=== PATIENT | male | born 1945 | race Caucasian/White ===

== ENCOUNTER → 2017-10-08 06:09 | Outpatient (CLI) | payer OTHER, SELFPAY ==
--- NOTE | 2017-10-08 06:13 | DI.MRI.S_ITS ---
PROCEDURE: MR LUMBAR SPINE WO CON INDICATIONS: Status post L5-S1 fusion with left lower extremity radicular TECHNIQUE: Noncontrast sagittal T1 spin echo and T2 fast echo, sagittal STIR, axial T1 and T2 fast spin echo through the lumbar spine. In cases with scoliosis, additional coronal T2 fast spin echo may be performed. COMPARISON: Outside Film, MR, MR THORACIC SPINE WITHOUT CONTRAST, 03/15/2017, 16:12. MR, LUMBAR SPINE W/O CONTRAST, 03/28/2002, 12:31. [facility], CR, SPINE LUMB MIN 4VW, 05/04/2016, 8:52. [facility] , MR, LUMBAR SPINE W/CONTRAST, 12/06/2007, 14:01. [facility] , MR, LUMBAR SPINE W/O CONTRAST, 12/05/2007, 7:09. [facility], CR, XR LUMBAR SPINE LAT FL EX 3VW, 08/25/2016, 9:29. [facility], MR, MR LUMBAR SPINE WO CON, 05/17/2016, 10:00. FINDINGS: Image quality: Excellent. Alignment and Curvature: There is transitional anatomy with prominent S1-S2 disc. The nomenclatures used in several prior lumbar spine MRI reports were inconsistent in regard to numbering the lumbar spine vertebral levels. Assuming 7 cervical vertebrae and 12 thoracic vertebrae, the level with surgical change is L5-S1. This level was previously referred as L4-L5 on the last MRI. There is minimal retrolisthesis of L2 on L3 and L3 on L4. Bone Marrow: There is discectomy and posterior fusion at L5-S1 Marrow is of normal overall signal. No acute vertebral body compression fractures. Spinal Cord: Conus medullaris terminates at the T12-L1 level. Visualized cord demonstrates normal signal and size. Paraspinous Soft Tissues: No paravertebral masses. L1-L2: [id number] loss of disc height and disc desiccation. There is broad posterior disc bulge. The central canal is patent. No foraminal stenosis. L2-L3: Mild loss of disc height and disc desiccation. There is broad posterior disc bulge and disc osteophyte complex. Mild left facet arthropathy. The central canal is patent. There is mild narrowing of the left lateral recess. Mild bilateral foraminal stenosis. Compared to the last exam on 05/17/2016, there is no significant change. L3-L4: Preserved disc height. Moderate disc desiccation. There is broad posterior disc bulge and disc osteophyte complex. Mild bilateral facet arthropathy. The central canal is narrowed. Mild bilateral foraminal stenosis, unchanged. L4-L5: Preserved disc height. Moderate disc desiccation. There is broad posterior disc bulge and disc osteophyte complex. Mild bilateral facet arthropathy. The central canal is narrowed. Mild bilateral foraminal stenosis, unchanged. L5-S1: Surgically fused. No central canal or foraminal stenosis. IMPRESSION: 1. Multilevel degenerative disc disease and facet arthropathy, as well as postsurgical change as described. 2. No significant central canal stenosis. 3. Multilevel foraminal stenosis as described. 4. Transitional anatomy is present with prominent S1-S2 disc. Please note that the numbering nomenclature used in this report is different from the last report. Dictated by: Katia Cuba M.D. on 10/08/2017 at 9:04 Transcribed by: LAURA on 10/08/2017 at 9:33 Approved by: Katia Cuba M.D. on 10/09/2017 at 8:06
== END ==
PROVIDERS: Family Provider Family Medicine; PCP Family Medicine; Visit Provider Physical Medicine & Rehabilitation
DX: M51.16 Intervertebral disc disorders with radiculopathy, lumbar region (principal); M48.061 Spinal stenosis, lumbar region without neurogenic claudication; Z98.1 Arthrodesis status; M17.10 Unilateral primary osteoarthritis, unspecified knee
CPT/HCPCS: 72148

== ENCOUNTER 2017-11-14 07:49 | Outpatient (CLI) | payer OTHER, SELFPAY ==
[2017-11-14] VITALS (11 sets, daily range): BP systolic 97–137; BP diastolic 55–74; PULSE 45–60; RESP 16–20; TEMP 36.7; O2SAT 95–100
--- NOTE | 2017-11-14 07:50 | DI.RAD.S_ITS ---
PROCEDURE: PAIN L/S TRANSFORAMINAL INJECT INDICATIONS: RADICULOPATHY FINDINGS: Fluoroscopic spot filming was performed to verify placement of spinal needles at the left S1 neural foramen level(s), as labeled on the films. Appropriate location(s) of the needle tip(s) was confirmed by injection of iodinated contrast. IMPRESSION: Successful needle tip localization to the left S1 neural foraminal area for epidural steroid injection. Dictated by: Joel Wilkins M.D. on 11/14/2017 at 13:17 Approved by: Joel Wilkins M.D. on 11/14/2017 at 13:18
[2017-11-14] MEDS: MIDAZOLAM 5 MG/5 ML VIAL IV (09:10)
[2017-11-14] MEDS: methylPREDNISolone acetate 80 MG/ML VIAL INJ (09:19)
[2017-11-14] MEDS: DEXAMETHASONE 10 MG/ML VIAL 20 MG INJ (09:20)
[2017-11-14] MEDS: BUPIVACAINE 0.25% (PF) VIAL 2 ML INJ (09:20)
[2017-11-14] MEDS: IOPAMIDOL 15 ML VIAL 3 ML INJ (09:20)
--- NOTE | 2017-11-14 09:28 | P.PCN_ITS ---
Procedures Date/Time Date of procedure: 11/14/17 Time of procedure: 09:26 General Procedure description: PREOP DIAGNOSIS 1. FORMAINAL STENOSIS WITH LE SYMPTOMS POST OP DIAGNOSIS 1. FORMAINAL STENOSIS WITH LE SYMPTOMS PROCEDURES 1. FLUOROSCOPICALLY GUIDED CONTRAST CONTROLLED TRANSFORAMINAL EPIDURAL STEROID INJECTION - Left S1 PHYSICIAN: Abel Rene DO INDICATIONS: Jatin is referred by Dr. Melvin for treatment of Foraminal Stenosis with left LE Symptoms FINDINGS Foraminal Nerve Root Compression secondary to disc disease and facet hypertrophy DESCRIPTION OF PROCEDURE: Following denial of allergy and review of potential side effects and complications, including, but not necessarily limited to, infection, allergic reaction, local tissue breakdown, stroke, temporary or permanent nerve injury, paralysis, and possible , the patient indicated that the patient understood and agreed to proceed. An informed consent document was signed by the patient, witnessed by a nurse, and placed in the patient's chart. Additionally, other treatment options including medications, modalities, and physical therapy were reviewed with the patient. Per the patient request, IV conscious sedation was administered via 3mg of Versed to patient comfort. The patient's vital signs were monitored throughout the procedure by both the nurse and the physician without significant fluctuation. The patient remained conversant throughout the procedure. In the prone position following sterile prep and drape of the lumbar region, the Left S1 posterior neuroforamen was identified fluoroscopically. The skin was anesthetized via a 25-gauge 1.5-inch needle with 1% lidocaine solution. At this point, a 25-gauge 3.5-inch spinal needle was atraumatically introduced and advanced under fluoroscopic guidance through the posterior Left L5/S1 neuroforamen to approximately the anterior aspect of the canal. Depth was confirmed on lateral view. Following negative aspiration, injection of approximately 1.5 cc of Isovue 200 under live fluoroscopy in the AP view confirmed excellent flow along the nerve root, into the epidural space without vascular or intrathecal uptake observed Radiological data, including multiple fluoroscopic views of the lumbosacral spine, reveal a spinal needle at the Left S1 posterior neuroforamen. Subsequent views show flow of contrast material flowing superiorly and inferiorly along the nerve root confirming epidural flow. Subsequently, a test dose of 1.5 cc of 1% lidocaine solution was administered and patient was observed for two minutes for signs or symptoms of complications , including abdominal pain, shortness of breath, bilateral upper or lower extremity weakness, nausea and vomiting, prior to steroid injection. At this point, a total of 3 cc or 20 mg of dexamethasone and 80mg Depo Medrol was injected without incident. The patient tolerated the procedure well without signs or symptoms of complications prior to transfer to the recovery area continued monitoring without incident. The patient was then transferred to the recovery area where they were observed for an appropriate time after the injection. The patient reported a VAS score of 7 prior to the procedure and a post-procedure VAS of 0. Total Fluoroscopy Time: 20.9 seconds Total Conscious Sedation Time: 24min POST OP INSTRUCTIONS The patient was provided a Pain Log to continue to record their response to the target-specific procedure prior to follow-up visit with their referring physician. Additionally, specific post-injection care instructions and a contact number to our office were provided if concerns arise regarding possible complications associated with the procedure are suspected. Abel Rene DO
--- NOTE | 2017-11-15 13:36 | PC.NURSE ---
Called patient for Follow up post procedure and he reports he's doing very good I don't have any nerve pain He was telling me he still has some bone pain from his back surgery in the past but that is chronic and never goes away. I will let Dr. Rene know.
== END 2017-11-14 10:16 ==
PROVIDERS: PCP Family Medicine; Visit Provider Physical Medicine & Rehabilitation
DX: M48.07 Spinal stenosis, lumbosacral region (principal); M51.17 Intervertebral disc disorders with radiculopathy, lumbosacral region; Z98.1 Arthrodesis status
CPT/HCPCS: 64483; 99152; J1040; J1100; J2250